=== PATIENT | female | born 1995 | race Two or more races ===

== ENCOUNTER 2016-11-24 10:17 | Emergency (ER) | payer MEDICAID, OTHER ==
[~2016-11-24] VITALS: Ht 154.9 cm; Wt 64.1 kg
[2016-11-24 11:27] VITALS: BP 124/76
== END 2016-11-24 13:04 | disposition home or self-care (01) ==
LOC: ER 10:17
DX: O26.891 Other specified pregnancy related conditions, first trimester (principal); O99.011 Anemia complicating pregnancy, first trimester; Z3A.11 11 weeks gestation of pregnancy; R06.02 Shortness of breath; R42 Dizziness and giddiness

== ENCOUNTER 2018-10-22 04:07 | Emergency (ER) | payer MEDICAID ==
[~2018-10-22] VITALS: Ht 154.9 cm; Wt 61.2 kg
[2018-10-22 04:31] LABS: Basophils # (auto) 0 uL; Basophils % (auto) 0.5 % (0.0-2.0); Eosinophils # (auto) 0.1 uL; Hematocrit 44.4 % (36.0-46.0); Hemoglobin 14.9 g/dL (12.2-16.2); Lymphocytes # (auto) 2.7 uL; Lymphocytes % (auto) 34.6 % (10.0-50.0); Mean Corpuscular Hemoglobin 31.7 pg (28.0-32.0); Mean Corpuscular Hgb Conc. 33.6 g/dL (32.0-36.0); Mean Corpuscular Volume 94.4 fL (80.0-100.0); Monocytes # (auto) 0.5 uL; Monocytes % (auto) 6.3 % (0.0-12.0); Neutrophils # (auto) 4.5 uL; Neutrophils % (auto) 57.6 % (37.0-80.0); Nucleated Red Blood Cells % 0.1 %; Platelet Count (auto) 255 10^3/uL (140-450); Red Cell Distribution Width 13.3 % (11.8-14.3); White Blood Cell 7.9 10^3/uL (4.4-10.8)
[2018-10-22 04:47] LABS: Alanine Aminotransferase 19 U/L (13-56); Albumin 4.2 g/dL (3.4-5.0); Anion Gap 15 (5-15); Aspartate Aminotransferase 13 U/L (15-37); BUN/Creatinine Ratio 7.9; Blood Urea Nitrogen 6 mg/dL (7-18); Calcium 8.9 mg/dL (8.5-10.1); Carbon Dioxide 18 mmol/L (21-32); Chloride 109 mmol/L (98-107); GFR African American 119 mL/min; GFR Non-African American 99 mL/min; Glucose 88 mg/dL (74-106); Potassium 3.8 mmol/L (3.5-5.1); Sodium 142 mmol/L (136-145)
[2018-10-22 04:50] LABS: Alkaline Phosphatase 77 U/L (45-117); Bilirubin, Total 0.4 mg/dL (0.2-1.0); Total Protein 8.1 g/dL (6.4-8.2)
[2018-10-22] MEDS ORDERED: IODIXANOL 320MG/ML 100ML BTL IV ONE (04:56)
[2018-10-22 05:20] LABS: Urine Bacteria NONE SEEN /hpf (None Seen); Urine Blood Negative /uL (Negative); Urine Specific Gravity 1.002 (1.001-1.035); Urine WBC <1 /hpf (0 - 5)
[2018-10-22 05:40] LABS: Amphetamine Screen, Urine NEGATIVE (NEGATIVE); Barbiturate Scree,Urine NEGATIVE (NEGATIVE); Benzodiazephine Screen, Urine NEGATIVE (NEGATIVE); Cannabinoid Screen, Urine NEGATIVE (NEGATIVE); Cocaine Screen, Urine NEGATIVE (NEGATIVE); Opiate Scree,Urine NEGATIVE (NEGATIVE); Phencyclidine Screen, Urine NEGATIVE (NEGATIVE)
[2018-10-22] MEDS ORDERED: LIDOCAINE 2%HCL (LOCAL ANESTH.) INJ 20ML MDV ONE (06:55)
[2018-10-22] MEDS ORDERED: LIDOCAINE 2%HCL (LOCAL ANESTH.) INJ 10ml MDV IJ ONE (07:00)
[2018-10-22] MEDS ORDERED: TETANUS-DIPTH-ACEL PERTUSSIS 0.5ML SYRG IM ONE (07:15)
[2018-10-22 07:54] VITALS: BP 110/60
== END 2018-10-22 08:42 ==
LOC: ER 04:07 → EDBD 04:07 → ER 08:42
DX: S01.81XA Laceration without foreign body of other part of head, initial encounter (principal); S30.0XXA Contusion of lower back and pelvis, initial encounter; N83.202 Unspecified ovarian cyst, left side; V49.49XA Driver injured in collision with other motor vehicles in traffic accident, initial encounter; Y93.89 Activity, other specified; Y99.8 Other external cause status; Y92.89 Other specified places as the place of occurrence of the external cause
CPT/HCPCS: 12013; 36415; 70450; 71260; 72125; 74177; 80053; 80307; 80320; 81001; 85025; 90471; 90715; 99284; J2001; Q9967

== ENCOUNTER 2020-09-26 11:19 | Emergency (ER) | payer MEDICAID ==
[~2020-09-26] VITALS: Ht 154.9 cm; Wt 72.6 kg
[2020-09-26 11:51] LABS: Basophils # (auto) 0.1 10 ^3/uL (0-0.2); Eosinophils # (auto) 0.4 10 ^3/uL (0-0.8); Eosinophils % (auto) 5.8 % (0.0-7.0); Hematocrit 41.6 % (36.0-46.0); Hemoglobin 14.1 g/dL (12.2-16.2); Lymphocytes # (auto) 1.9 10 ^3/uL (0.4-5.4); Lymphocytes % (auto) 31.3 % (10.0-50.0); Mean Corpuscular Volume 91.1 fL (80.0-100.0); Monocytes # (auto) 0.2 10 ^3/uL (0-1.3); Monocytes % (auto) 2.8 % (0.0-12.0); Neutrophils # (auto) 3.6 10 ^3/uL (1.6-8.6); Neutrophils % (auto) 59.1 % (37.0-80.0); Nucleated Red Blood Cells % 0.1 %; Red Blood Cells 4.56 10^6/uL (4.0-5.20); Red Cell Distribution Width 13.1 % (11.8-14.3); White Blood Cell 6.1 10^3/uL (4.4-10.8)
[2020-09-26 12:31] LABS: Albumin 3.9 g/dL (3.4-5.0); BUN/Creatinine Ratio 15.5; Calcium 8.7 mg/dL (8.5-10.1); Potassium 3.9 mmol/L (3.5-5.1)
[2020-09-26 12:35] LABS: Bilirubin, Total 0.3 mg/dL (0.2-1.0); Total Protein 7.7 g/dL (6.4-8.2)
[2020-09-26 13:02] LABS: Urine Bacteria FEW /hpf (None Seen); Urine Blood Negative /uL (Negative); Urine Specific Gravity 1.011 (1.001-1.035); Urine WBC 2 /hpf (0 - 5)
[2020-09-26 16:48] VITALS: BP 10/53
== END 2020-09-26 17:15 | disposition home or self-care (01) ==
LOC: ER 11:19
DX: O20.8 Other hemorrhage in early pregnancy (principal); O23.41 Unspecified infection of urinary tract in pregnancy, first trimester; Z3A.00 Weeks of gestation of pregnancy not specified
CPT/HCPCS: 36415; 76801; 76817; 80053; 81001; 84702; 85025

== ENCOUNTER 2022-10-04 19:51 | Emergency (ER) | payer MEDICAID ==
[~2022-10-04] VITALS: Ht 154.9 cm; Wt 70.0 kg
[2022-10-04] MEDS ORDERED: diphenhdrAMINE HCL 25 MG CAP PO ONE (20:15)
[2022-10-04] MEDS ORDERED: POLYSOL28 OP (22:14)
[2022-10-04] MEDS ORDERED: DexAMETHasone SOD PHOS 4 MG/1ML SDV INJ IM ONE (22:15)
[2022-10-04 22:45] VITALS: BP 104/74; PULSE 78; RESP 18; TEMP 98.6; O2SAT 97
== END 2022-10-04 22:47 | disposition home or self-care (01) ==
LOC: ER 19:51
DX: T78.40XA Allergy, unspecified, initial encounter (principal); F10.90 Alcohol use, unspecified, uncomplicated; Z79.899 Other long term (current) drug therapy; X58.XXXA Exposure to other specified factors, initial encounter
CPT/HCPCS: 96372; 99283; J1100